=== PATIENT | male | born 1985 | race Caucasian/White ===

== ENCOUNTER 2017-08-10 16:39 | Emergency (ER) | payer OTHER ==
[~2017-08-10] VITALS: Ht 175.3 cm; Wt 60.4 kg
[2017-08-10 16:48] VITALS: BP 149/91; PULSE 93; TEMP 36.6; O2SAT 95; Ht 175.3 cm; Wt 60.4 kg
[2017-08-10] MEDS ORDERED: PENI-82 PO (17:14)
--- NOTE | 2017-08-10 17:14 | EMERGENCY ROOM VISIT NOTE ---
History First contact with patient: 16:54 Chief Complaint: DENTAL PAIN Stated Complaint: TOOTH PAIN Nursing Triage Summary: Patient ambulatory to triage with an upright and steady gait, states "I had a filling fall out three weeks ago. I saw the dentist last week. They were unable to fill it. They said that the tooth needs a root canal which I can't get until the second week of September. The pain is just getting worse and worse. I haven't been able to eat or drink much." Patient reports pain is all on the right lower jaw. History of Present Illness The patient is a 31 year old male who presents to the Emergency Room with complaints of dental pain. The patient states that he had a filling fall out 3 weeks ago. He saw a dentist last week but they were unable to fill it. They recommended a root canal or extraction and the patient is scheduled for a root canal next month. He states that he has had increased pain in the tooth. The pain worsens when he is eating or breathing. He states the pain is constant and throbbing and rates the discomfort as 7/10. The pain has been gradually worsening over the past 2 weeks. He denies any facial swelling, drainage or fevers. Review of Systems A complete 10 point review of systems was reviewed with the patient with pertinent positives and negatives as per history of present illness. All else were negative. Past Medical/Surgical History Medical Problems: (1) No significant active problems Social History Smoking Status: Current Every Day Smoker Alcohol Use: none Drug Use: none Marital Status: in relationship Housing Status: lives with significant other Occupation Status: employed Current/Historical Medications Scheduled Penicillin V Potassium (Veetids), 500 MG PO QID Physical Exam Vital Signs Date Time Temp Pulse Resp B/P (MAP) Pulse Ox O2 Delivery O2 Flow Rate FiO2 08/10/17 16:48 36.6 93 18 149/91 95 Room Air Physical Exam VITALS: Vitals are noted on the nurse's note and reviewed by myself. Vital signs stable. GENERAL: This is a 31-year-old male, in no acute distress, nondiaphoretic, well- developed well-nourished. SKIN: The skin was without rashes. EARS: External auditory canals clear, tympanic membranes pearly guzman without erythema or effusion bilaterally. EYES: Pupils equal round and reactive to light and accommodation. MOUTH: Mucous membranes moist. No significant erythema or edema of the gums. No facial swelling. NECK: Supple without nuchal rigidity. No lymphadenopathy. HEART: Regular rate and rhythm without murmurs gallops or rubs. LUNGS: Clear to auscultation bilaterally without wheezes, rales or rhonchi. NEURO: Patient was alert and oriented to person place and time. Medical Decision & Procedures Medical Decision Differential diagnosis includes dental caries, dental infection, Ian's angina , facial cellulitis, among others. The patient was evaluated as above. He will be given a prescription for penicillin. He was instructed to keep his appointment with his dentist for follow-up as scheduled. He verbalized understanding of my assessment and treatment plan and was discharged home in good condition. Medication Reconcilliation Current Medication List: was personally reviewed by me Blood Pressure Screening Patient's blood pressure: Elevated blood pressure Blood pressure disposition: Elevated BP felt to be situational Impression Primary Impression: Dentalgia Departure Information Dispostion Home / Self-Care Condition GOOD Prescriptions Penicillin V Potassium (Veetids) 500 Mg Tab 500 MG PO QID for 10 Days, #40 TAB Prov: Lillie Prince ., JULIEN 08/10/17 Patient Instructions My [facility] Additional Instructions You have been treated in the Emergency Department for Dental Pain. You were prescribed penicillin to be taken as prescribed. This is an antibiotic. All antibiotics have the potential to cause diarrhea. Stop this medication and contact a medical provider if you were to develop any significant adverse side effects including: wheezing, shortness of breath, passing out, vomiting, or a diffuse rash. Always take antibiotics as directed and COMPLETE the ENTIRE course regardless of the improvement of your symptoms. For pain control, you can use the following [id number] medicines (if >12 yo): - Regular strength (325mg/tab) Tylenol (acetaminophen) 2 tabs every 4-6 hours as needed. Do not exceed 12 tablets in a 24 hour period. Avoid taking more than 4 grams (4000 mg) of Tylenol per day. This includes any other sources of acetaminophen you may take on a regular basis. - Regular strength (200 mg/tab) Advil (ibuprofen) 1-2 tabs every 4-6 hours as needed. Do not exceed a dose of 3200 mg per day. Refrain from smoking cigarettes or using chewing tobacco until you have been evaluated by your dentist. Keeping beverages lukewarm and consuming soft foods can decrease your pain. Warm compresses over the affected area may offer some relief. You MUST seek evaluation of your dental pain by a dentist following your visit to the Emergency Department. The Emergency Department is not capable of treating dental issues long-term. You should call your dentist as soon as possible to make an appointment for evaluation of your dental pain. Return to the emergency department if you develop the following symptoms despite treatment course outlined above: fever, intractable pain, increased redness, swelling, or purulent discharge.
== END 2017-08-10 17:23 | disposition home or self-care (01) ==
LOC: C.EDB 16:39 → C.EDD 17:23
DX: K08.89 Other specified disorders of teeth and supporting structures (principal); F17.210 Nicotine dependence, cigarettes, uncomplicated